=== PATIENT | female | born 1940 | race Caucasian/White ===

== ENCOUNTER → 2022-03-18 10:58 | Outpatient (CLI) | payer OTHER, SELFPAY ==
--- NOTE | 2022-03-18 11:01 | DI.RAD.S_ITS ---
PROCEDURE: XR HAND RT MIN 3V INDICATIONS: right hand and finger injuries TECHNIQUE: 3 views of the hand(s) acquired. COMPARISON: None. FINDINGS: Bones: The bones appear demineralized. Moderate-severe polyarticular degenerative changes primarily involving the interphalangeal joints, 1st CMC joint, STT joint. Possible gullwing deformity of the 5th digit DIP joint. Possible mildly displaced acute fracture of the volar base of the 4th digit distal phalanx on the lateral view. Possible impacted fracture of the 5th digit proximal phalanx with foreshortened appearance and equivocal cortical irregularity. Soft tissues: No suspicious soft tissue calcifications. IMPRESSION: 1. Possible acute fractures of the 4th digit distal phalanx and 5th digit proximal phalanx as above, however the appearance could be secondary to pronounced degenerative changes. Correlation with areas of patient pain/point tenderness may be helpful. If symptoms persist, follow-up radiographs and/or CT may be helpful for further evaluation. 2. Polyarticular degenerative changes. Appearance of the 5th digit DIP joint raises the possibility of erosive osteoarthritis. Dictated by: Eyal Malik M.D. on 03/18/2022 at 12:06 Approved by: Eyal Malik M.D. on 03/18/2022 at 12:17
== END ==
PROVIDERS: Referring Provider Nurse Practitioner Family; Visit Provider Nurse Practitioner Family
DX: S69.91XA Unspecified injury of right wrist, hand and finger(s), initial encounter (principal); X58.XXXA Exposure to other specified factors, initial encounter
CPT/HCPCS: 73130

== ENCOUNTER 2024-09-08 08:50 | Emergency (ER) | payer OTHER, SELFPAY ==
[2024-09-08 09:02] VITALS: BP 196/84; PULSE 71; RESP 24; TEMP 36.8; O2SAT 97; BMI 35.7
[2024-09-08 09:10] VITALS: PULSE 59; O2SAT 97
--- NOTE | 2024-09-08 09:18 | ED_ITS ---
HPI - URI/Sore Throat General Chief Complaint: Upper Respiratory Symptoms Stated Complaint: Cough, Cold Symptoms Time Seen by Provider: 09/08/24 09:10 Source: patient Mode of arrival: Ambulatory History of Present Illness HPI Narrative: Patient is 84-year-old female history of hypertension presenting today with upper respiratory like symptoms. She was visiting from [place] she has nasal congestion and pretty productive cough. No fever or body aches. No chest pain. She is noted to be quite hypertensive here in the ED. She has no lower extremity edema. She was mostly concerned about pneumonia which he has had in the past. She does not want to get her immunocompromised sister ill. Denies any nausea vomiting or other symptoms Related Data Home Medications Medication Instructions Recorded Confirmed amlodipine 10 mg tablet 10 mg PO DAILY 05/29/23 05/29/23 atorvastatin 10 mg tablet 10 mg PO DAILY 05/29/23 05/29/23 clopidogrel 75 mg tablet 75 mg PO DAILY 05/29/23 05/29/23 furosemide 20 mg tablet 20 mg PO DAILY 05/29/23 05/29/23 metoprolol tartrate 25 mg tablet 12.5 mg PO BID 05/29/23 05/29/23 ramipril 10 mg capsule 10 mg PO DAILY 05/29/23 05/29/23 risedronate 35 mg tablet 35 mg PO QWEEK 05/29/23 05/29/23 Allergies Allergy/AdvReac Type Severity Reaction Status Date / Time Penicillins Allergy Mild Rash Verified 09/08/24 09:05 Sulfa (Sulfonamide Allergy Mild Verified 09/08/24 09:05 Antibiotics) Patient History Social History Smoking Status: Former smoker Smoking Status: Former smoker Exam Initial Vital Signs Initial Vital Signs: Vital Signs Temperature 98.3 F 09/08/24 09:02 Pulse Rate 71 09/08/24 09:02 Respiratory Rate 24 09/08/24 09:02 Blood Pressure 196/84 H 09/08/24 09:02 Pulse Oximetry 97 09/08/24 09:02 Oxygen Delivery Method Room Air 09/08/24 09:02 GENERAL: Alert nontoxic well-appearing 84-year-old female and in no acute distress. HEENT: Head atraumatic,EOMI, pupils reactive, face symmetric, moist mucous membranes CARDIOVASCULAR: Regular rate and rhythm without murmurs, rubs or gallops. RESPIRATORY: Breath sounds equal bilaterally, no wheezes rales or rhonchi. ABDOMEN: Soft, nontender. Normoactive bowel sounds all 4 quadrants. No guarding or rebound. EXTREMITIES: Normal range of motion, no clubbing or edema. Neurovascularly intact NEUROLOGICAL: Alert and oriented x4.Normal gait and speech. Cranial nerves II through XII grossly intact. SKIN: Warm, dry, no laceration, no petechiae, no rashes or lesions. Course Orders Ordered: ED Orders 09/08/24 09:25 Chest [XR chest 2V] Stat EKG-12 Lead Stat 09/08/24 09:30 BNP [NT-proBNP (BNP-Adult 18+)] Stat CBC Auto Diff [Complete Blood Count AUTO DIFF] Stat CMP [Comprehensive Metabolic Panel] Stat Troponin & CK Cardiac Panel Stat Vital Signs Vital signs: Vital Signs - 8 hr 09/08/24 09:02 09/08/24 09:10 09/08/24 09:30 Temperature 98.3 F Pulse Rate 71 59 L 53 L Respiratory Rate 24 Blood Pressure 196/84 H Pulse Oximetry 97 97 96 Oxygen Delivery Method Room Air 09/08/24 09:31 09/08/24 09:31 09/08/24 10:00 Temperature Pulse Rate 57 L 52 L Respiratory Rate Blood Pressure 168/71 H Pulse Oximetry 96 96 Oxygen Delivery Method MDM - URI/Sore Throat Lab Data 09/08/24 09:30 09/08/24 09:30 Labs: Lab Results 09/08/24 Range/Units 09:30 WBC 7.4 (4.5-11.0) X10^3/uL RBC 3.91 L (4.0-5.2) X10^6/uL Hgb 12.3 (12.0-16.0) g/dL Hct 36.6 (36-46) % MCV 93.7 (80-100) fL MCH 31.6 (26-34) PG MCHC 33.7 (30-36) % RDW 13.5 (11.6-14.8) % Plt Count 248 (150-400) X10^3/uL Neut % (Auto) 74.0 (50-75) % Lymph % (Auto) 12.0 L (25-40) % [place] % (Auto) 11.6 (3-14) % Eos % (Auto) 2.0 (2-4) % Baso % (Auto) 0.4 (0-2) % Neut # (Auto) 5500 (8259-8125) /uL Lymph # (Auto) 900 L (3763-3748) /uL [place] # (Auto) 900 (0-900) /uL Eos # (Auto) 100 (0-450) /uL Baso # (Auto) 0 (0-100) /uL Sodium 131 L (137-145) mmol/L Potassium 4.6 (3.4-5.1) mmol/L Chloride 98 (98-107) mmol/L Carbon Dioxide 27 (22-32) mmol/L BUN 14 (7-17) mg/dL Creatinine 0.68 (0.52-1.04) mg/dL Estimated GFR > 60 (>60) mL/min BUN/Creatinine Ratio 20.6 (6-22) Glucose 111 H (80-110) mg/dL Calcium 9.8 (8.4-10.2) mg/dL Total Bilirubin 0.6 (0.2-1.3) mg/dL AST 34 (14-36) IU/L ALT 23 (<35) IU/L Alkaline Phosphatase 69 (38-126) U/L Total Creatine Kinase 183 H (30-135) U/L Troponin I < 0.012 (0.01-0.034) ng/mL NT-Pro-B Natriuret Pep 328 (<450) pg/mL Total Protein 7.0 (6.3-8.2) g/dL Albumin 4.2 (3.5-5.0) g/dL Globulin 2.8 (1.7-4.1) g/dL Albumin/Globulin Ratio 1.5 (1.0-2.8) Imaging Data Chest x-ray: Radiologist's Impression: PROCEDURE: XR CHEST 2V INDICATIONS: cough TECHNIQUE: 2 views of the chest were acquired. COMPARISON: None. FINDINGS: Surgical changes and devices: None. Lungs and pleura: Lungs are clear. No pleural effusions or pneumothorax. Mediastinum: Mediastinal contours are normal. Heart size is normal. Bones and chest wall: No suspicious bony abnormalities. Soft tissues appear unremarkable. IMPRESSION: No acute cardiopulmonary abnormality is seen. Dictated by: Dara Robb M.D. on 09/08/2024 at 9:08 ECG Data Attestation: I personally reviewed and interpreted this ECG as follows: Prior ECG tracings: not available for review Interpretation: Normal sinus rhythm rate 57 CT interval 188 QRS [address] changes MDM Narrative Medical decision making narrative: MDM CC: Upper respiratory symptoms Complicating co-morbidities: Hypertension, possible CHF on [facility] Medical records reviewed: Minimal records to compare she has only been to the ED or walk-in clinic twice before Differential considered: Pneumonia viral illness CHF acute coronary syndrome Exam documented above, pertinent findings include: Well-appearing nontoxic a 4-year-old female breath sounds are clear no respiratory distress but she does have cough Lab Test results independently reviewed as above. Pertinent findings: WBC 7.4, hemoglobin 12.3 hematocrit 36.6 platelets 248, Sodium 131 potassium 4.6 chloride 98 carbon dioxide 27 BUN 14 creatinine 0.8 Troponin negative, BNP 320 Independently reviewed EKG as above no ischemia sinus rhythm Imaging studies independently reviewed: Chest x-ray no pneumonia or acute cardiopulmonary process Treatments: none Re-evaluations: Remains stable Discussion: At this time patient is an 83-year-old female presenting today with upper respiratory symptoms. Complaining of some nasal congestion and a productive cough. Breath sounds are clear chest x-ray does not show evidence of pneumonia blood work today is overall reassuring. We did discuss possible viral testing however agrees not necessarily indicated. No need for antibiotics at this time. Supportive care only #65: Appropriate Treatment for Patients with URI X The patient was diagnosed with upper respiratory infection and was not prescribed or dispensed an antibiotic. [SATISFIES MIPS PERFORMANCE] [] The patient has competing comorbid condition within the last 12 months. The comorbid condition was [] (e.g., neutropenia, cystic fibrosis, chronic bronchitis, pulmonary edema, respiratory failure, rheumatoid lung disease). [MIPS PERFORMANCE EXCEPTION/EXCLUSION] [] The patient is already on antibiotics, or has taken them within the last 30 days. [MIPS PERFORMANCE EXCEPTION/EXCLUSION] [] The patient had a competing diagnosis of [] (e.g. acute otitis media, chronic sinusitis, cellulitis, UTI, etc.). [MIPS PERFORMANCE EXCEPTION/EXCLUSION] [] The patient was diagnosed with upper respiratory infection and was prescribed or dispensed an antibiotic. [DOES NOT SATISFY MIPS PERFORMANCE] Discharge Plan Departure Patient Disposition: Home Clinical Impression: Upper respiratory infection Instructions: DI for Viral Upper Respiratory Infection -- Adult Activity Restrictions/Additional Instructions: *You have been diagnosed with upper respiratory infection *What to do: At this time you have a viral illness no need for antibiotics no evidence of pneumonia. Continue to rest and hydrate *Continue to take medications as directed May also try [id number] Mucinex to help with cough *Follow up with your primary care provider in 2-3 days or call [phone] *Return to ER if you should have increasing shortness of breath fever confusion [or] any new, worsening or concerning symptoms Prescriptions: No Action clopidogrel 75 mg tablet 75 mg PO DAILY risedronate 35 mg tablet 35 mg PO QWEEK Rx Instructions: administer at least 30 minutes before the first food or drink of the day other than water. amlodipine 10 mg tablet 10 mg PO DAILY ramipril 10 mg capsule 10 mg PO DAILY atorvastatin 10 mg tablet 10 mg PO DAILY furosemide 20 mg tablet 20 mg PO DAILY metoprolol tartrate 25 mg tablet 12.5 mg PO BID Referrals: Miscellaneous,Doctor, [Primary Care Provider] - Stand Alone Forms: Patient Portal/API/Survey
--- NOTE | 2024-09-08 09:25 | DI.RAD.S_ITS ---
PROCEDURE: XR CHEST 2V INDICATIONS: cough TECHNIQUE: 2 views of the chest were acquired. COMPARISON: None. FINDINGS: Surgical changes and devices: None. Lungs and pleura: Lungs are clear. No pleural effusions or pneumothorax. Mediastinum: Mediastinal contours are normal. Heart size is normal. Bones and chest wall: No suspicious bony abnormalities. Soft tissues appear unremarkable. IMPRESSION: No acute cardiopulmonary abnormality is seen. Dictated by: Dara Robb M.D. on 09/08/2024 at 9:08 Approved by: Dara Robb M.D. on 09/08/2024 at 9:11
--- NOTE | 2024-09-08 09:25 | EKG_ITS ---
[address] [address] Test Date: 2024-09-08 Pat Name: Caro Sanderson Department: [facility] Room: Gender: Female [employer]: [place] : 1940 Requested By: Order Number: [id number] Reading MD: Kemal Otero MD Measurements Intervals [place] Rate: 57 P: 53 MI: 188 QRS: 31 QRSD: 96 T: 41 QT: 418 QTc: 406 Interpretive Statements Sinus bradycardia Electronically Signed On 09-09-2024 13:38:37 PST by Kemal Otero MD
[2024-09-08 09:30] VITALS: PULSE 53; O2SAT 96
[2024-09-08 09:31] VITALS: BP 168/71; PULSE 57; O2SAT 96
[2024-09-08 09:43] LABS: Add Manual Diff / Slide Review NO; Basophils Absolute Auto 0 /uL (0-100); Basophils Percent Auto 0.4 % (0-2); Eosinophils Absolute Auto 100 /uL (0-450); Hematocrit 36.6 % (36-46); Hemoglobin 12.3 g/dL (12.0-16.0); Lymphocytes Absolute Auto 900 /uL (1100-4500); Mean Corpuscular HGB Conc 33.7 % (30-36); Mean Corpuscular Hemoglobin 31.6 PG (26-34); Mean Corpuscular Volume 93.7 fL (80-100); Monocytes Absolute Auto 900 /uL (0-900); Monocytes Percent Auto 11.6 % (3-14); Neutrophils Absolute Auto 5500 /uL (1500-7000); Platelet Count 248 X10^3/uL (150-400); Red Blood Cell Count 3.91 X10^6/uL (4.0-5.2); Red Cell Distribution Width 13.5 % (11.6-14.8); White Blood Cell Count 7.4 X10^3/uL (4.5-11.0)
[2024-09-08 09:53] LABS: Alanine Aminotransferase 23 IU/L (<35); Albumin 4.2 g/dL (3.5-5.0); Albumin Globulin Ratio 1.5 (1.0-2.8); Alkaline Phosphatase 69 U/L (38-126); Aspartate Aminotransferase 34 IU/L (14-36); BUN Creatinine Ratio 20.6 (6-22); Bilirubin Total 0.6 mg/dL (0.2-1.3); Blood Urea Nitrogen 14 mg/dL (7-17); Calcium 9.8 mg/dL (8.4-10.2); Carbon Dioxide 27 mmol/L (22-32); Chloride 98 mmol/L (98-107); Creatine Kinase 183 U/L (30-135); Estimated Glomerular Filt Rate > 60 mL/min (>60); Globulin 2.8 g/dL (1.7-4.1); Glucose 111 mg/dL (80-110); HEMOLYSIS < 15 (0-50); Potassium 4.6 mmol/L (3.4-5.1); Sodium 131 mmol/L (137-145)
[2024-09-08 10:00] VITALS: PULSE 52; O2SAT 96
[2024-09-08 10:04] LABS: NT-proBNP (BNP-Adult 18+) 328 pg/mL (<450); Troponin I < 0.012 ng/mL (0.01-0.034)
== END 2024-09-08 10:33 | disposition home or self-care (01) ==
PROVIDERS: Emergency Provider Emergency Medicine
DX: J06.9 Acute upper respiratory infection, unspecified (principal); I10 Essential (primary) hypertension; R00.1 Bradycardia, unspecified
CPT/HCPCS: 36415; 71046; 80053; 82550; 83880; 84484; 85025; 93005; 93010; 99283; 99284